=== PATIENT | male | born 1975 | race Caucasian/White ===

== ENCOUNTER 2019-04-24 11:47 | Emergency (ER) | payer OTHER, MEDICAID ==
[~2019-04-24] VITALS: Ht 177.8 cm; Wt 90.7 kg
[2019-04-24 11:47] VITALS: BP_SYST 116
[2019-04-24 12:43] VITALS: BP_SYST 114
== END 2019-04-24 12:42 | disposition home or self-care (01) ==
LOC: SED 11:47
DX: S60.562A Insect bite (nonvenomous) of left hand, initial encounter (principal); L03.114 Cellulitis of left upper limb; W57.XXXA Bitten or stung by nonvenomous insect and other nonvenomous arthropods, initial encounter; Y93.89 Activity, other specified; Y92.89 Other specified places as the place of occurrence of the external cause; Y99.8 Other external cause status
CPT/HCPCS: 99283